=== PATIENT | male | born 1985 | race Caucasian/White ===

== ENCOUNTER 2022-10-28 09:55 | Outpatient (CLI) | payer BC | END 2022-10-28 09:56 | disposition home or self-care (01) | LOC: NAV RAD 09:55 | PROVIDERS: ATTEND Family Medicine | DX: M79.672 Pain in left foot (principal) ==

== ENCOUNTER 2024-03-18 10:15 | Outpatient (CLI) | payer OTHER | END 2024-03-18 10:16 | disposition home or self-care (01) | LOC: NAV RAD 10:15 | PROVIDERS: ATTEND Family Medicine | DX: M25.441 Effusion, right hand (principal) ==